=== PATIENT | male | born 1985 | race Caucasian/White ===

== ENCOUNTER 2018-02-18 13:07 | Emergency (ER) | payer OTHER ==
[2018-02-18] MEDS ORDERED: Ibuprofen 800 MG TAB ONE (13:30)
[2018-02-18] MEDS ORDERED: Lidocaine Viscous Sol 2% 15 ml UD Cup ONE ×2 (13:30→14:18)
[2018-02-18] MEDS ORDERED: HYDROcodone/Acetaminophen 5/325 mg Tablet ONE (13:30)
== END 2018-02-18 14:23 | disposition home or self-care (01) ==
LOC: MADERS 13:07
DX: K08.89 Other specified disorders of teeth and supporting structures (principal)
CPT/HCPCS: 99282